=== PATIENT | female | born 1965 | race American Indian/Alaskan Native ===

== ENCOUNTER 2016-12-08 10:35 | Outpatient (CLI) | payer MEDICARE ==
--- NOTE | 2016-12-08 13:37 | Mammography Report ---
Bilateral mammogram: Compared to 11/08/15. CAD study utilized. Findings: Predominance adipose tissue bilaterally. Focal 3 mm high density asymmetry outer posterior right breast. No microcalcification. Benign axillary nodes. Impression: Focal dense asymmetry outer posterior right breast. Recommend spot mag and if necessary sonographic examination. BI-RADS CATEGORY: 0 = Needs additional imaging evaluation ACR BI-RADS MAMMOGRAPHIC CODES: 0 = Needs additional imaging evaluation; 1 = Negative; 2 = Benign; 3 = Probably benign; 4 = Suspicious; 5 = Malignant; 6 = Known biopsy-proven malignancy COMMENT: 1. Dense breast tissue, i.e., adenosis, fibrocystic changes, etc., may obscure an underlying neoplasm. 2. Approximately 10% of cancers are not detected with mammography. 3. A negative mammography report should not delay biopsy if a clinically suspicious mass is present. COMMENT: Patient follow-up letters are generated in [employer].
== END 2016-12-08 10:36 | disposition home or self-care (01) ==
LOC: MAMMO 10:35
PROVIDERS: ATTEND Internal Medicine Hematology & Oncology
DX: Z12.31 Encounter for screening mammogram for malignant neoplasm of breast (principal)
CPT/HCPCS: 77067; G0202

== ENCOUNTER 2017-01-01 08:15 | Outpatient (CLI) | payer MEDICARE ==
--- NOTE | 2017-01-01 09:57 | Mammography Report ---
Spot compression magnification and sonographic examination focal density outer posterior right breast: Findings: There is persistence of density identified on spot magnification view however no distinct mass or microcalcification seen. Sonographic examination reveals no distinct mass or microcalcification in the region of the density however there is a hypoechoic complex cyst measuring 0.8 x 2.3 x 0.4 cm in diameter noted at 12:00 position 6 cm from nipple. Impression: Probably benign findings. Six-month followup with mammogram and sonogram recommended. BI-RADS CATEGORY: 3 = Probably benign ACR BI-RADS MAMMOGRAPHIC CODES: 0 = Needs additional imaging evaluation; 1 = Negative; 2 = Benign; 3 = Probably benign; 4 = Suspicious; 5 = Malignant; 6 = Known biopsy-proven malignancy COMMENT: 1. Dense breast tissue, i.e., adenosis, fibrocystic changes, etc., may obscure an underlying neoplasm. 2. Approximately 10% of cancers are not detected with mammography. 3. A negative mammography report should not delay biopsy if a clinically suspicious mass is present. COMMENT: Patient follow-up letters are generated in [employer].
== END 2017-01-01 08:16 | disposition home or self-care (01) ==
LOC: US 08:15
PROVIDERS: ATTEND Internal Medicine Hematology & Oncology
DX: N60.01 Solitary cyst of right breast (principal)
CPT/HCPCS: 76642; G0206

== ENCOUNTER 2017-09-07 08:35 | Outpatient (CLI) | payer MEDICARE ==
--- NOTE | 2017-09-07 15:40 | Mammography Report ---
RIGHT DIGITAL DIAGNOSTIC MAMMOGRAM with CAD: 09/07/17 08:35:00 CLINICAL: Follow-up outer parenchymal asymmetry. COMPARISON:12/08/16 FINDINGS: The breast is heterogeneously dense, which may obscure small masses. The reminder pattern is stable with stable asymmetric fibroglandular densities in the outer breast. No mass, architectural distortion or suspicious calcifications. IMPRESSION: No mammographic evidence of malignancy. BI-RADS CATEGORY: 1 - - Negative RECOMMENDATION: Return to routine mammographic screening. ACR BI-RADS MAMMOGRAPHIC CODES: 0 = Needs additional imaging evaluation; 1 = Negative; 2 = Benign; 3 = Probably benign; 4 = Suspicious; 5 = Malignant; 6 = Known biopsy-proven malignancy COMMENT: 1. Dense breast tissue, i.e., adenosis, fibrocystic changes, etc., may obscure an underlying neoplasm. 2. Approximately 10% of cancers are not detected with mammography. 3. A negative mammography report should not delay biopsy if a clinically suspicious mass is present. COMMENT: Patient follow-up letters are generated by our [employer] application.
== END 2017-09-07 08:36 | disposition home or self-care (01) ==
LOC: MAMMO 08:35
PROVIDERS: ATTEND Internal Medicine Hematology & Oncology
DX: R92.8 Other abnormal and inconclusive findings on diagnostic imaging of breast (principal)
CPT/HCPCS: G0206-RT

== ENCOUNTER 2021-08-22 20:50 | Emergency (ER) | payer MEDICARE ==
[2021-08-22 22:52] LABS: Alanine Aminotransferase 17 units/L (7-56); Albumin 4.3 g/dL (3.9-5); BUN/Creatinine Ratio 25; Blood Urea Nitrogen 27 mg/dL (7-17); Calcium 9.8 mg/dL (8.4-10.2); Hemolysis Index 7
[2021-08-22 22:54] LABS: Basophils % (Auto) 0.8 % (0.0-1.8); Eosinophils # (Auto) 0.2 K/mm3 (0.0-0.4); Eosinophils % (Auto) 2.8 % (0.0-4.3); Hematocrit 32.7 % (30.3-42.9); Hemoglobin 10.5 gm/dl (10.1-14.3); Lymphocytes # (Auto) 2.2 K/mm3 (1.2-5.4); Mean Corpuscular HGB Conc 32 % (30-34); Mean Corpuscular Volume 91 fl (79-97); Monocytes # (Auto) 0.5 K/mm3 (0.0-0.8); Monocytes % (Auto) 10.2 % (0.0-7.3); Platelet Count 274 K/mm3 (140-440); Red Blood Count 3.59 M/mm3 (3.65-5.03); Red Cell Distribution Width 14.6 % (13.2-15.2)
--- NOTE | 2021-08-22 22:56 | XRay Report ---
XR chest routine 2V INDICATION / CLINICAL INFORMATION: leg swelling. COMPARISON: None available. FINDINGS: SUPPORT DEVICES: None. HEART /PULMONARY VASCULATURE: No significant abnormality. LUNGS / PLEURA: No significant pulmonary or pleural abnormality. No pneumothorax. ADDITIONAL FINDINGS: No significant additional findings. IMPRESSION: 1. No acute findings. Signer Name: Caleb Perez MD Signed: 08/22/2021 10:51 PM Workstation Name: [id number]
--- NOTE | 2021-08-22 23:01 | Vascular Lab Report ---
DUPLEX DOPPLER LOWER EXTREMITY VEINS, BILATERAL INDICATION / CLINICAL INFORMATION: Bilateral leg pain and swelling. TECHNIQUE: Duplex doppler imaging was performed through the veins of both lower extremities using venous lexx jassi and other maneuvers. COMPARISON: None available. FINDINGS: RIGHT COMMON FEMORAL VEIN: Negative. RIGHT FEMORAL VEIN: Negative. RIGHT POPLITEAL VEIN: Negative. RIGHT CALF VEINS: Negative. LEFT COMMON FEMORAL VEIN: Negative. LEFT FEMORAL VEIN: Negative. LEFT POPLITEAL VEIN: Negative. LEFT CALF VEINS: Negative. ADDITIONAL FINDINGS: None. IMPRESSION: 1. No sonographic evidence for DVT in either lower extremity. Signer Name: Caleb Perez MD Signed: 08/22/2021 10:56 PM Workstation Name: [id number]
--- NOTE | 2021-08-23 00:40 | Emergency Department Report ---
ED Extremity Problem HPI - General Chief complaint: Extremity Injury, Lower Stated complaint: LEG SWELLING AND PAIN Source: patient Mode of arrival: Ambulatory Limitations: No Limitations - History of Present Illness Initial comments: Patient is a 56-year-old -[place] female with history of hypertension and [id number] diabetes who presents to the ED with complaint of acute onset persistent bilateral lower extremity pain and swelling for the last 2 weeks. Patient states that she occasionally indulges in heavy salty food. Patient states that she was initially evaluated at another hospital extensively and that all test results were unremarkable. Patient states that in the last 3 days the swelling and pain of worsened and she decided come to the ED for evaluation. Patient denies chest pain, shortness of breath, dizziness, syncope, cough, abdominal pain, nausea, vomiting, diarrhea, traumatic injury, heavy lifting, back pain or hip pain. MD Complaint: extremity pain (bilateral lower leg pain and swelling), extremity swelling (bilateral lower leg pain and swelling) -: Sudden, week(s) (2) Location: bilateral lower extremity History of Same: No -: Yes arthralgia, No fever, No associated dyspnea, No associated chest pain Radiation: distal Severity scale (0 -10): 4 Quality: aching, dull Consistency: intermittent Improves with: rest Worsens with: weight bearing, walking, exertion, palpation Associated Symptoms: denies other symptoms. denies: chest pain, shortness of breath, fever, myalgias, arthralgias - Related Data Previous Rx's Medication Instructions Recorded Last Taken Type Naproxen 500 mg PO Q12H PRN #24 tablet 08/23/21 Unknown Rx Allergies Allergy/AdvReac Type Severity Reaction Status Date / Time No Known Allergies Allergy Unverified 11/08/15 09:09 ED Review of Systems ROS: Stated complaint: LEG SWELLING AND PAIN Other details as noted in HPI Constitutional: denies: chills, fever Eyes: denies: eye pain, eye discharge, vision change ENT: denies: ear pain, throat pain Respiratory: denies: cough, shortness of breath, wheezing Cardiovascular: denies: chest pain, palpitations Endocrine: no symptoms reported Gastrointestinal: denies: abdominal pain, nausea, diarrhea Genitourinary: denies: urgency, dysuria, discharge Musculoskeletal: joint swelling (Bilateral lower extremity swelling), arthralgia (Bilateral lower extremity swelling and pain). denies: back pain Skin: denies: rash, lesions Neurological: denies: headache, weakness, paresthesias Psychiatric: denies: anxiety, depression Hematological/Lymphatic: denies: easy bleeding, easy bruising ED Past Medical Hx - Past Medical History Previous Medical History?: Yes Hx Hypertension: Yes Hx Diabetes: Yes - Surgical History Past Surgical History?: No - Medications Home Medications: Home Medications Medication Instructions Recorded Confirmed Last Taken Type Naproxen 500 mg PO Q12H PRN #24 tablet 08/23/21 Unknown Rx ED Physical Exam - General Limitations: No Limitations General appearance: alert, in no apparent distress - Head Head exam: Present: atraumatic, normocephalic, normal inspection - Eye Eye exam: Present: normal appearance, PERRL, EOMI Pupils: Present: normal accommodation - ENT ENT exam: Present: normal exam, normal orophraynx, mucous membranes moist, TM's normal bilaterally, normal external ear exam - Neck Neck exam: Present: normal inspection, full ROM - Respiratory Respiratory exam: Present: normal lung sounds bilaterally. Absent: respiratory distress, wheezes, rales, rhonchi, chest wall tenderness, accessory muscle use, decreased breath sounds, prolonged expiratory - Cardiovascular Cardiovascular Exam: Present: regular rate, normal rhythm, normal heart sounds. Absent: systolic murmur, diastolic murmur, rubs, gallop - GI/Abdominal GI/Abdominal exam: Present: soft, normal bowel sounds. Absent: tenderness, guarding, rebound, hyperactive bowel sounds, hypoactive bowel sounds, organom egaly, mass - Extremities Exam Extremities exam: Present: normal inspection, full ROM, tenderness (Palpable mild diffuse lower extremity tenderness with mild swelling), normal capillary refill. Absent: pedal edema, joint swelling, calf tenderness - Back Exam Back exam: Present: normal inspection, full ROM. Absent: tenderness, CVA tenderness (R), CVA tenderness (L), muscle spasm, paraspinal tenderness - Neurological Exam Neurological exam: Present: alert, oriented X3, CN II-XII intact, normal gait, reflexes normal - Psychiatric Psychiatric exam: Present: normal affect, normal mood - Skin Skin exam: Present: warm, dry, intact, normal color. Absent: rash ED Course Vital Signs 08/22/21 21:00 Temperature 97.7 F Pulse Rate 79 Respiratory 18 Rate Blood Pressure 139/57 O2 Sat by Pulse 99 Oximetry ED Medical Decision Making - Lab Data Result diagrams: 08/22/21 21:58 08/22/21 21:58 - Radiology Data Radiology results: report reviewed, image reviewed [address] [address] XRay Report Signed Patient: JERAD CARRERA MR#: [id number] : 1965 Acct:[id number] Age/Sex: 56 / F ADM Date: 08/22/21 Loc: ED Attending Dr: Ordering Physician: FAISAL BLUNT Date of Service: 08/22/21 Procedure(s): XR chest routine 2V Accession Number(s): [id number] cc: FAISAL BLUNT Fluoro Time In Minutes: XR chest routine 2V INDICATION / CLINICAL INFORMATION: leg swelling. COMPARISON: None available. FINDINGS: SUPPORT DEVICES: None. HEART /PULMONARY VASCULATURE: No significant abnormality. LUNGS / PLEURA: No significant pulmonary or pleural abnormality. No pneumothorax. ADDITIONAL FINDINGS: No significant additional findings. IMPRESSION: 1. No acute findings. Signer Name: Emely Perez MD Signed: 08/22/2021 10:51 PM Workstation Name: [id number] Transcribed By: JS Dictated By: EMELY PEREZ MD Electronically Authenticated By: EMELY PEREZ MD Signed Date/Time: 08/22/212250 DD/ 50 TD/TT: [address] [address] Vascular Lab Report Signed Patient: JERAD CARRERA MR#: [id number] : 1965 Acct:[id number] Age/Sex: 56 / F ADM Date: 08/22/21 Loc: ED Attending Dr: Ordering Physician: FAISAL BLUNT Date of Service: 08/22/21 Procedure(s): VL venous duplex DEB BECKMAN Accession Number(s): [id number] cc: FAISAL BLUNT DUPLEX DOPPLER LOWER EXTREMITY VEINS, BILATERAL INDICATION / CLINICAL INFORMATION: Bilateral leg pain and swelling. TECHNIQUE: Duplex doppler imaging was performed through the veins of both lower extremities using venous compression and other maneuvers. COMPARISON: None available. FINDINGS: RIGHT COMMON FEMORAL VEIN: Negative. RIGHT FEMORAL VEIN: Negative. RIGHT POPLITEAL VEIN: Negative. RIGHT CALF VEINS: Negative. LEFT COMMON FEMORAL VEIN: Negative. LEFT FEMORAL VEIN: Negative. LEFT POPLITEAL VEIN: Negative. LEFT CALF VEINS: Negative. ADDITIONAL FINDINGS: None. IMPRESSION: 1. No sonographic evidence for DVT in either lower extremity. Signer Name: Emely Perez MD Signed: 08/22/2021 10:56 PM Workstation Name: [id number] Transcribed By: ELSIE Dictated By: EMELY PEREZ MD Electronically Authenticated By: EMELY PEREZ MD Signed Date/Time: 08/22/212255 DD/ 55 TD/TT: Print Cancel - Medical Decision Making This is a 56-year-old -[place] female with history of hypertension and hyq-hgusxif-wvlmjwloi diabetes who presents to the ED with complaint of acute onset persistent bilateral lower extremity pain and swelling for the last 2 weeks. Patient states that she occasionally indulges in heavy salty food. Patient states that she was initially evaluated at another hospital extensively and that all test results were unremarkable. Patient states that in the last 3 days the swelling and pain of worsened and she decided come to the ED for evaluation. In the ED, patient is alert and oriented x3 and is not in any distress. Lab test results were reviewed and are all nonactionable. Chest x- ray showed no acute cardiopulmonary abnormalities or pneumonitis. Bilateral lower extremity Doppler ultrasound showed no sonographic evidence of DVT. Patient was therefore discharged home on pain medications and advised to follow- up with her primary care physician in 7 to 10 days for reevaluation. Patient advised return to the ED immediately if symptoms get worse. - Differential Diagnosis Muscle spasm; DVT; muscle strain; Critical care attestation.: If time is entered above; I have spent that time in minutes in the direct care of this critically ill patient, excluding procedure time. ED Disposition Clinical Impression: Muscle spasm of both lower legs, Strain of muscle and tendon of lower leg, Symptom of leg swelling Disposition: 01 HOME / SELF CARE / HOMELESS Is pt being admited?: No Does the pt Need Aspirin: No Condition: Stable Instructions: Muscle Cramps and Spasms, [id number], Muscle Strain, [id number] Additional Instructions: Take medication with food, drink plenty of fluids and follow-up with your primary care physician in 7 to 10 days for reevaluation. Ensure that you elevate your legs above your heart by propping your legs on a pillow when laying down on the bed so that the mild swelling at the fluids can go back to hurt. Return to the ED immediately if his symptoms get worse. Prescriptions: Naproxen 500 mg PO Q12H PRN #24 tablet PRN Reason: Pain , Severe (7-10) Referrals: [facility] [Provider Group] - 7-10 days Time of Disposition: 00:42 Print Language: CONGOLESE
[2021-08-23 01:21] VITALS: BP 132/64
--- NOTE | 2021-08-23 18:38 | Electrocardiograph Report ---
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
== END 2021-08-23 01:19 | disposition home or self-care (01) ==
LOC: ED 20:50
DX: S86.919A Strain of unspecified muscle(s) and tendon(s) at lower leg level, unspecified leg, initial encounter (principal); M62.838 Other muscle spasm; R22.9 Localized swelling, mass and lump, unspecified; I10 Essential (primary) hypertension; E11.9 Type 2 diabetes mellitus without complications; X58.XXXA Exposure to other specified factors, initial encounter; Y93.89 Activity, other specified; Y92.89 Other specified places as the place of occurrence of the external cause; Y99.8 Other external cause status
CPT/HCPCS: 36415; 71046; 80053; 82962; 83880; 84484; 85025; 93005; 93970; 99284